=== PATIENT | male | born 1965 | race Caucasian/White ===

== ENCOUNTER 2021-12-28 19:14 | Inpatient (IN) ==
--- NOTE | 2021-12-28 19:52 | Emergency Department Note ---
Syncope HPI General Chief Complaint: Syncope Stated Complaint: Syncopal episode, Head lac Time Seen by Provider: 12/28/21 19:52 Source: patient and EMS Mode of arrival: EMS Limitations: physical limitation History of Present Illness HPI Narrative: Narrative: 56-year-old male presents to the emergency department because of a syncopal episode. Patient says to me that he "do not feel right" today. He denies any pain. Denies shortness of breath. States that he had a syncopal episode. Unclear how long he was out for. Patient does not recall but told the nurse he was out for a day. Patient told EMS that he does not get any care from providers but his record indicates that he sees clinicians and receives me dications. Patient appears to be a poor historian. Patient states that the swelling and redness in his legs usually goes away in a couple of days. Patient states he has no idea if he hit his head. Patient does have some wound and bleeding on the right forehead area. Social history denies tobacco, denies alcohol. Past medical history has hypertension for which he uses lisinopril. Related Data Home Medications Medication Instructions Recorded Confirmed gabapentin 100 mg tablet 300 mg PO TID 11/11/20 12/29/21 Previous Rx's Medication Instructions Recorded lisinopril 20 mg tablet 20 mg PO BID HTN #60 tabs 03/27/19 Allergies Allergy/AdvReac Type Severity Reaction Status Date / Time No Known Drug Allergies Allergy Verified 12/29/21 05:23 Review of Systems ROS ROS Narrative: Narrative: I question the accuracy of this review of systems. Constitutional: Denies fever Eyes: Denies eye pain or eye discharge ENT ED: Denies throat pain or rhinorrhea Cardiovascular: Denies chest pain Gastrointestinal: Denies abdominal pain Genitourinary: Denies dysuria Musculoskeletal: Denies back pain Integumentary: Reports other (Red skin on his legs.) Neurological: Denies headache Psychiatric: Denies anxiety or depression PENDING SALE TO [facility] Narrative Patient History Narrative: Narrative: Medical/Surgical/Family History All Active Problems (Updated 12/29/21 @ 11:32 by Dale Brown MD) Syncope and collapse (Acute) Umbilical hernia (Chronic) Lumbar radiculopathy (Chronic) Chronic pain (Chronic) Other obesity due to excess calories (Chronic) Trichotillomania (Chronic) Rhinitis (Chronic) Effusion of knee joint right (Chronic) Chondromalacia of knee (Chronic) Bilateral primary osteoarthritis of knee (Chronic) Lump (Chronic) Venous insufficiency (Chronic) DJD (degenerative joint disease) of knee (Chronic) Peripheral neuropathy (Chronic) Hypertension (Chronic) Lesion of lip (Chronic) Other low back pain (Chronic) Dislocation of knee (Chronic) Medical History Bilateral primary osteoarthritis of knee Chondromalacia of knee Right Chronic pain Dislocation of knee DJD (degenerative joint disease) of knee Right Effusion of knee joint right Hypertension Lesion of lip Upper Lumbar radiculopathy Lump right knee Other low back pain Other obesity due to excess calories Peripheral neuropathy Rhinitis Trichotillomania Umbilical hernia Venous insufficiency Surgical History History of knee surgery RTK-1982 Right knee total-12/2020 Left knee revision-2001 History of lumbar laminectomy Family History Mother Cancer Father Cancer Prostate cancer Lung disease Heart disease Sister Lung cancer Social History Smoking Status: Never smoker Alcohol Intake Frequency: 0-2 drinks per day Substance Use: does not use Exam Narrative Narrative: Narrative: General Limitations: physical limitation General appearance: Present alert, in no apparent distress and obese Head Head: Present normocephalic and other (Superficial abrasions on the right side of his forehead with some soft tissue swelling.); Absent atraumatic Eye Eye: Present normal appearance; Absent scleral icterus Neck Neck: Present normal inspection and trachea midline Respiratory Respiratory: Present normal lung sounds bilaterally; Absent respiratory distress Cardiovascular Cardiovascular: Present normal rhythm and tachycardia Adbominal Abdominal: Present soft and other (Morbidly obese); Absent tenderness Extremities Extremities: Present other (Massive swelling of both lower extremities with bright red erythema on the lower half of each leg. Minimally tender to palpation.) Back Back: Absent tenderness Neurological Neurological: Present alert and oriented X3 Psychiatric Psychiatric: Present normal mood and flat affect Skin Skin: Present warm (WNL) and dry Course Vital Signs Vital signs: Vital Signs Temperature 97.3 F 12/28/21 19:17 Pulse Rate 101 H 12/28/21 19:17 Respiratory Rate 18 12/28/21 19:17 Blood Pressure 158/120 12/28/21 19:17 Pulse Oximetry (%) 97 12/28/21 19:17 Oxygen Delivery Method 12/28/21 19:17 Temperature 98.8 F 12/29/21 08:04 Pulse Rate 113 H 12/29/21 01:56 Respiratory Rate 16 12/29/21 09:12 Blood Pressure 158/131 12/29/21 08:04 Pulse Oximetry (%) 98 12/29/21 09:12 Oxygen Delivery Method 12/29/21 09:[address] [facility] MDM Narrative Medical decision making narrative: Narrative: Middle-age male appearing older than her stated age presents after syncopal episode and not feeling right. Differential diagnosis includes urinary tract infection, pyelonephritis, sepsis, pneumonia, cardiac arrhythmia, other CT of the head showed no evidence of acute acute bleed or mass-effect. Mild soft tissue swelling along the left frontal region. White count normal at 7.2. Hemoglobin mildly low at 11.1. Sodium low at 128. Note that it was low 10 months ago at 127. Potassium normal at 4.1. Chloride was low at 91. Bicarb low at 20. Bilirubin elevated at 1.2 with elevated AST of 47 and normal ALT of 29. Patient remained tachycardic in the emergency department. I did not find a clear explanation for his syncope. His EKG showed a sinus tachycardia without ischemia. Case was discussed with our hospitalist who agreed on admitting the patient for further evaluation and care. Sepsis Sepsis Identified: No Lab Data Result diagrams: 12/28/21 20:50 12/29/21 09:05 Labs: Lab Results 12/28/21 12/28/21 12/28/21 Range/Units 20:50 20:50 20:50 WBC 7.2 (4.5-11.0) K/mcL RBC 3.31 L (4.63-6.08) M/mcL Hgb 11.1 L (13.7-17.5) g/dL Hct 32.2 L (40.1-51.0) % MCV 97.3 (80.0-100.0) fL MCH 33.5 (26.0-34.0) pg MCHC 34.5 (31.0-36.0) g/dL RDW 14.6 H (11.5-14.5) % Plt Count 202 (140-440) K/mcL MPV 8.8 (8.8-12.5) fL Immature Gran % (Auto) 0.4 (0.0-0.5) % Neut % (Auto) 63.0 (38.0-78.0) % Lymph % (Auto) 27.2 (15.5-49.0) % [place] % (Auto) 7.6 (1.0-12.0) % Eos % (Auto) 1.1 (0.0-7.0) % Baso % (Auto) 0.7 (0.0-2.0) % Lymph # (Auto) 1.96 (1.50-4.80) K/mcL [place] # (Auto) 0.55 (0.10-0.90) K/mcL Eos # (Auto) 0.08 (0.00-0.70) K/mcL Baso # (Auto) 0.05 (0.00-0.30) K/mcL Seg Neutrophils % (38-78) % Lymphocytes % (15-49) % Monocytes % (Manual) (1-12) % Eosinophils % (Manual) (0-7) % Immature Gran # 0.03 (0.00-0.05) K/mcl Absolute Neutrophils 4.53 (1.80-8.00) K/mcL Platelet Estimate (Normal) RBC Morphology (Normal) Macrocytosis (None Seen) ABG Methemoglobin (0.4-1.5) % VBG pH (7.32-7.42) U VBG pCO2 (41.0-51.0) mmHg VBG pO2 (25.0-40.0) mmHg VBG HCO3 (24.0-28.0) mmol/L VBG Total CO2 (25.0-29.0) mmol/L VBG O2 Saturation (40.0-70.0) % VBG Base Excess (-2-3) VBG Lactic Acid 5.4 H* (0.5-2.0) mmol/L Carboxyhemoglobin (0.0-1.5) % THgb Total Hemoglobin (13.5-16.5) gm/Dl Sodium 128 L (133-145) mmol/L Potassium 4.1 (3.3-5.1) mmol/L Chloride 91 L (96-108) mmol/L Carbon Dioxide 20 L (22-30) mmol/L Anion Gap 17.0 H (8.0-16.0) BUN 7 (6-20) mg/dL Creatinine 0.7 (0.7-1.2) mg/dL GFR Calculation 107 Glucose 82 (70-105) mg/dL Calcium 8.4 L (8.6-10.4) mg/dL Total Bilirubin 1.2 H (0.1-1.0) mg/dL AST 47 H (<40) U/L ALT 29 (<40) U/L Alkaline Phosphatase 84 (39-117) U/L Total Creatine Kinase (24-195) U/L C-Reactive Protein (0.03-0.80) mg/dL Total Protein 7.4 (5.9-8.4) gm/dL Albumin 3.7 (3.2-5.2) gm/dL Globulin 3.7 (2.2-3.7) gm/dL Albumin/Globulin Ratio 1.0 (1.0-2.3) Procalcitonin (<0.10) ng/mL Urine Color Urine Appearance (Clear) Urine pH (5.0-9.0) Ur Specific [place] (1.000-1.035) Urine Protein (Negative) mg/dL Urine Glucose (UA) (Negative) mg/dL Urine Ketones (Negative) mg/dL Urine Occult Blood (Negative) mg/dL Urine Nitrate (Negative) Urine Bilirubin (Negative) mg/dL Urine Urobilinogen mg/dL Ur Leukocyte Esterase (Negative) /uL Urine RBC (0-3) /hpf Urine WBC (0-4) /hpf Ur Squamous Epith Cells (0-4) /hpf Urine Bacteria (0) /hpf Hyaline Casts (0-2) /lph Urine Mucus (None) /hpf Ur Culture Indicated? 12/28/21 12/28/21 12/28/21 Range/Units 21:39 22:32 22:32 WBC (4.5-11.0) K/mcL RBC (4.63-6.08) M/mcL Hgb (13.7-17.5) g/dL Hct (40.1-51.0) % MCV (80.0-100.0) fL MCH (26.0-34.0) pg MCHC (31.0-36.0) g/dL RDW (11.5-14.5) % Plt Count (140-440) K/mcL MPV (8.8-12.5) fL Immature Gran % (Auto) (0.0-0.5) % Neut % (Auto) (38.0-78.0) % Lymph % (Auto) (15.5-49.0) % [place] % (Auto) (1.0-12.0) % Eos % (Auto) (0.0-7.0) % Baso % (Auto) (0.0-2.0) % Lymph # (Auto) (1.50-4.80) K/mcL [place] # (Auto) (0.10-0.90) K/mcL Eos # (Auto) (0.00-0.70) K/mcL Baso # (Auto) (0.00-0.30) K/mcL Seg Neutrophils % (38-78) % Lymphocytes % (15-49) % Monocytes % (Manual) (1-12) % Eosinophils % (Manual) (0-7) % Immature Gran # (0.00-0.05) K/mcl Absolute Neutrophils (1.80-8.00) K/mcL Platelet Estimate (Normal) RBC Morphology (Normal) Macrocytosis (None Seen) ABG Methemoglobin (0.4-1.5) % VBG pH (7.32-7.42) U VBG pCO2 (41.0-51.0) mmHg VBG pO2 (25.0-40.0) mmHg VBG HCO3 (24.0-28.0) mmol/L VBG Total CO2 (25.0-29.0) mmol/L VBG O2 Saturation (40.0-70.0) % VBG Base Excess (-2-3) VBG Lactic Acid (0.5-2.0) mmol/L Carboxyhemoglobin (0.0-1.5) % THgb Total Hemoglobin (13.5-16.5) gm/Dl Sodium (133-145) mmol/L Potassium (3.3-5.1) mmol/L Chloride (96-108) mmol/L Carbon Dioxide (22-30) mmol/L Anion Gap (8.0-16.0) BUN (6-20) mg/dL Creatinine (0.7-1.2) mg/dL GFR Calculation Glucose (70-105) mg/dL Calcium (8.6-10.4) mg/dL Total Bilirubin (0.1-1.0) mg/dL AST (<40) U/L ALT (<40) U/L Alkaline Phosphatase (39-117) U/L Total Creatine Kinase (24-195) U/L C-Reactive Protein 0.50 (0.03-0.80) mg/dL Total Protein (5.9-8.4) gm/dL Albumin (3.2-5.2) gm/dL Globulin (2.2-3.7) gm/dL Albumin/Globulin Ratio (1.0-2.3) Procalcitonin 0.07 (<0.10) ng/mL Urine Color Yellow Urine Appearance Clear (Clear) Urine pH 5.0 (5.0-9.0) Ur Specific [place] 1.010 (1.000-1.035) Urine Protein Negative (Negative) mg/dL Urine Glucose (UA) Negative (Negative) mg/dL Urine Ketones Negative (Negative) mg/dL Urine Occult Blood Negative (Negative) mg/dL Urine Nitrate Negative (Negative) Urine Bilirubin Negative (Negative) mg/dL Urine Urobilinogen Negative mg/dL Ur Leukocyte Esterase Negative (Negative) /uL Urine RBC 0 (0-3) /hpf Urine WBC 1 (0-4) /hpf Ur Squamous Epith Cells 0 (0-4) /hpf Urine Bacteria None (0) /hpf Hyaline Casts 28 H (0-2) /lph Urine Mucus Few A (None) /hpf Ur Culture Indicated? No 12/28/21 12/28/21 12/28/21 Range/Units 22:33 22:51 23:25 WBC (4.5-11.0) K/mcL RBC (4.63-6.08) M/mcL Hgb (13.7-17.5) g/dL Hct (40.1-51.0) % MCV (80.0-100.0) fL MCH (26.0-34.0) pg MCHC (31.0-36.0) g/dL RDW (11.5-14.5) % Plt Count (140-440) K/mcL MPV (8.8-12.5) fL Immature Gran % (Auto) (0.0-0.5) % Neut % (Auto) (38.0-78.0) % Lymph % (Auto) (15.5-49.0) % [place] % (Auto) (1.0-12.0) % Eos % (Auto) (0.0-7.0) % Baso % (Auto) (0.0-2.0) % Lymph # (Auto) (1.50-4.80) K/mcL [place] # (Auto) (0.10-0.90) K/mcL Eos # (Auto) (0.00-0.70) K/mcL Baso # (Auto) (0.00-0.30) K/mcL Seg Neutrophils % 64 (38-78) % Lymphocytes % 30 (15-49) % Monocytes % (Manual) 4 (1-12) % Eosinophils % (Manual) 2 (0-7) % Immature Gran # (0.00-0.05) K/mcl Absolute Neutrophils (1.80-8.00) K/mcL Platelet Estimate Normal (Normal) RBC Morphology Abnormal A (Normal) Macrocytosis 1+ A (None Seen) ABG Methemoglobin (0.4-1.5) % VBG pH (7.32-7.42) U VBG pCO2 (41.0-51.0) mmHg VBG pO2 (25.0-40.0) mmHg VBG HCO3 (24.0-28.0) mmol/L VBG Total CO2 (25.0-29.0) mmol/L VBG O2 Saturation (40.0-70.0) % VBG Base Excess (-2-3) VBG Lactic Acid 5.7 H* (0.5-2.0) mmol/L Carboxyhemoglobin (0.0-1.5) % THgb Total Hemoglobin (13.5-16.5) gm/Dl Sodium (133-145) mmol/L Potassium (3.3-5.1) mmol/L Chloride (96-108) mmol/L Carbon Dioxide (22-30) mmol/L Anion Gap (8.0-16.0) BUN (6-20) mg/dL Creatinine (0.7-1.2) mg/dL GFR Calculation Glucose (70-105) mg/dL Calcium (8.6-10.4) mg/dL Total Bilirubin (0.1-1.0) mg/dL AST (<40) U/L ALT (<40) U/L Alkaline Phosphatase (39-117) U/L Total Creatine Kinase 435 H (24-195) U/L C-Reactive Protein (0.03-0.80) mg/dL Total Protein (5.9-8.4) gm/dL Albumin (3.2-5.2) gm/dL Globulin (2.2-3.7) gm/dL Albumin/Globulin Ratio (1.0-2.3) Procalcitonin (<0.10) ng/mL Urine Color Urine Appearance (Clear) Urine pH (5.0-9.0) Ur Specific [place] (1.000-1.035) Urine Protein (Negative) mg/dL Urine Glucose (UA) (Negative) mg/dL Urine Ketones (Negative) mg/dL Urine Occult Blood (Negative) mg/dL Urine Nitrate (Negative) Urine Bilirubin (Negative) mg/dL Urine Urobilinogen mg/dL Ur Leukocyte Esterase (Negative) /uL Urine RBC (0-3) /hpf Urine WBC (0-4) /hpf Ur Squamous Epith Cells (0-4) /hpf Urine Bacteria (0) /hpf Hyaline Casts (0-2) /lph Urine Mucus (None) /hpf Ur Culture Indicated? 12/28/21 Range/Units 23:25 WBC (4.5-11.0) K/mcL RBC (4.63-6.08) M/mcL Hgb (13.7-17.5) g/dL Hct (40.1-51.0) % MCV (80.0-100.0) fL MCH (26.0-34.0) pg MCHC (31.0-36.0) g/dL RDW (11.5-14.5) % Plt Count (140-440) K/mcL MPV (8.8-12.5) fL Immature Gran % (Auto) (0.0-0.5) % Neut % (Auto) (38.0-78.0) % Lymph % (Auto) (15.5-49.0) % [place] % (Auto) (1.0-12.0) % Eos % (Auto) (0.0-7.0) % Baso % (Auto) (0.0-2.0) % Lymph # (Auto) (1.50-4.80) K/mcL [place] # (Auto) (0.10-0.90) K/mcL Eos # (Auto) (0.00-0.70) K/mcL Baso # (Auto) (0.00-0.30) K/mcL Seg Neutrophils % (38-78) % Lymphocytes % (15-49) % Monocytes % (Manual) (1-12) % Eosinophils % (Manual) (0-7) % Immature Gran # (0.00-0.05) K/mcl Absolute Neutrophils (1.80-8.00) K/mcL Platelet Estimate (Normal) RBC Morphology (Normal) Macrocytosis (None Seen) ABG Methemoglobin 0.3 L (0.4-1.5) % VBG pH 7.41 (7.32-7.42) U VBG pCO2 33.5 L (41.0-51.0) mmHg VBG pO2 66.2 H (25.0-40.0) mmHg VBG HCO3 20.5 L (24.0-28.0) mmol/L VBG Total CO2 21.5 L (25.0-29.0) mmol/L VBG O2 Saturation 87.3 H (40.0-70.0) % VBG Base Excess -3 L (-2-3) VBG Lactic Acid (0.5-2.0) mmol/L Carboxyhemoglobin 3.1 H (0.0-1.5) % THgb Total Hemoglobin 13.0 L (13.5-16.5) gm/Dl Sodium (133-145) mmol/L Potassium (3.3-5.1) mmol/L Chloride (96-108) mmol/L Carbon Dioxide (22-30) mmol/L Anion Gap (8.0-16.0) BUN (6-20) mg/dL Creatinine (0.7-1.2) mg/dL GFR Calculation Glucose (70-105) mg/dL Calcium (8.6-10.4) mg/dL Total Bilirubin (0.1-1.0) mg/dL AST (<40) U/L ALT (<40) U/L Alkaline Phosphatase (39-117) U/L Total Creatine Kinase (24-195) U/L C-Reactive Protein (0.03-0.80) mg/dL Total Protein (5.9-8.4) gm/dL Albumin (3.2-5.2) gm/dL Globulin (2.2-3.7) gm/dL Albumin/Globulin Ratio (1.0-2.3) Procalcitonin (<0.10) ng/mL Urine Color Urine Appearance (Clear) Urine pH (5.0-9.0) Ur Specific [place] (1.000-1.035) Urine Protein (Negative) mg/dL Urine Glucose (UA) (Negative) mg/dL Urine Ketones (Negative) mg/dL Urine Occult Blood (Negative) mg/dL Urine Nitrate (Negative) Urine Bilirubin (Negative) mg/dL Urine Urobilinogen mg/dL Ur Leukocyte Esterase (Negative) /uL Urine RBC (0-3) /hpf Urine WBC (0-4) /hpf Ur Squamous Epith Cells (0-4) /hpf Urine Bacteria (0) /hpf Hyaline Casts (0-2) /lph Urine Mucus (None) /hpf Ur Culture Indicated? ED POC Tests ED POC Tests: CASSIE - SARS Antigen Negative EKG Data EKG #1: EKG attestation: Yes I reviewed and interpreted this EKG. EKG shows normal: sinus rhythm Rate: tachycardia [place]/QRS: normal ST segment elevation in: None ST segment depression in: None T wave inversions noted in: None Hyperacute T waves: None Interpretation: other (Abnormal EKG. Sinus tachycardia.) Discharge Plan Patient/Caregiver Discharge Instructions Pt seen by FIELD AUDITOR/PA only: No Clinical Impression: Syncope and collapse Patient Disposition: Xfer As Inpt ([facility]) Condition: Serious Discharge Date/Time: 12/29/21 01:42
[2021-12-28 21:56] LABS: Basophils # (Auto) 0.05 K/mcL (0.00-0.30); Basophils % (Auto) 0.7 % (0.0-2.0); Eosinophils # (Auto) 0.08 K/mcL (0.00-0.70); Eosinophils % (Auto) 1.1 % (0.0-7.0); Hematocrit 32.2 % (40.1-51.0); Hemoglobin 11.1 g/dL (13.7-17.5); Lymphocytes # (Auto) 1.96 K/mcL (1.50-4.80); Lymphocytes % (Auto) 27.2 % (15.5-49.0); Mean Cell Volume 97.3 fL (80.0-100.0); Mean Corpuscular HGB Conc 34.5 g/dL (31.0-36.0); Mean Platelet Volume 8.8 fL (8.8-12.5); Monocytes # (Auto) 0.55 K/mcL (0.10-0.90); Monocytes % (Auto) 7.6 % (1.0-12.0); Platelet Count 202 K/mcL (140-440); RBC 3.31 M/mcL (4.63-6.08); Red Cell Distribution Width 14.6 % (11.5-14.5); WBC 7.2 K/mcL (4.5-11.0)
[2021-12-28 22:13] LABS: ALT/SGPT 29 U/L (<40); AST/SGOT 47 U/L (<40); Albumin 3.7 gm/dL (3.2-5.2); Alkaline Phosphatase 84 U/L (39-117); Bilirubin,Total 1.2 mg/dL (0.1-1.0); Blood Urea Nitrogen 7 mg/dL (6-20); Calcium 8.4 mg/dL (8.6-10.4); Carbon Dioxide 20 mmol/L (22-30); Chloride 91 mmol/L (96-108); Globulin 3.7 gm/dL (2.2-3.7); Glomerular Filtration Rate 107; Glucose 82 mg/dL (70-105)
[2021-12-28] MEDS ORDERED: cefTRIAXone 1 GM VIAL IV ONE (22:23)
[2021-12-28 22:47] LABS: Appearance,Urine CLEAR (Clear); Bilirubin,Urine Negative (Negative); Color,Urine YELLOW; Culture Indicated,Urine No; Glucose,Urine (UA) Negative (Negative); Ketones,Urine Negative (Negative); Leukocyte Esterase,Urine Negative /uL (Negative); Mucus,Urine FEW /hpf; Nitrate,Urine Negative (Negative); Protein,Urine Negative (Negative); Urine Blood Negative (Negative); Urine Hyaline Cast 28 /lph (0-2); Urine RBC 0 /hpf (0-3); Urine Squamous Epithelial Cell 0 /hpf (0-4); Urine WBC 1 /hpf (0-4); Urobilinogen,Urine Negative
[2021-12-28 23:42] LABS: ABG Methemoglobin 0.3 % (0.4-1.5); VBG Base Excess -3 (-2-3); VBG HCO3 20.5 mmol/L (24.0-28.0); VBG Oxygen Saturation 87.3 % (40.0-70.0); VBG PCO2 33.5 mmHg (41.0-51.0); VBG PH 7.41 U (7.32-7.42); VBG PO2 66.2 mmHg (25.0-40.0); VBG Total CO2 21.5 mmol/L (25.0-29.0)
[2021-12-28 23:51] LABS: Eosinophils % (Manual) 2 % (0-7); Lymphocytes % 30 % (15-49); Macrocytosis 1+ (None Seen); Monocytes % (Manual) 4 % (1-12); Platelet Estimate NORMAL (Normal); RBC Morphology ABNORMAL (Normal); Segmented Neutrophils % 64 % (38-78)
[2021-12-29 00:04] LABS: Creatine Kinase 435 U/L (24-195)
[2021-12-29] MEDS ORDERED: 0.9 % SODIUM CHLORIDE 1,000 ML IV ONE (00:19)
[2021-12-29] MEDS ORDERED: cefTRIAXone 1 GM VIAL IV ONE (00:20)
--- NOTE | 2021-12-29 01:57 | Cat Scan Report ---
CLINICAL INFORMATION: Trauma-fall COMPARISON: None. TECHNIQUE: 2.5 mm helical slices were obtained in the skull base to vertex. Following reconstruction, axial reformatted images were reviewed at bone and parenchymal windows. The exam was performed using radiation dose optimization techniques including, but not limited to, automated exposure control, adjustment of the mA and/or kV according to patient size and use of iterative reconstruction technique. FINDINGS: The ventricles, sulci, fissures, and cisterns are symmetrically enlarged compatible with atrophy. No extra-axial fluid collections are identified. Mild patchy chronic ischemic changes, in the deep cerebral white matter, are expected for age. There is no hemorrhage, mass effect, or edema. Bone windows show no osseous abnormality. IMPRESSION: Mild atrophy and chronic ischemic changes in the deep cerebral white more than expected for age. No intracerebral hemorrhage or other acute findings Interpreted and Authenticated by: Gustavo Beltran 12/29/21
[2021-12-29] MEDS: 0.9 % SODIUM CHLORIDE 1,000 ML IV SCH ×4 (03:49→23:18)
[2021-12-29] MEDS ORDERED: LABETALOL 5 MG/ML ML IV ONE (07:44)
[2021-12-29] MEDS ORDERED: POTASSIUM CHLORIDE 20 MEQ TABLET PO PRN ×2 (09:03)
[2021-12-29] MEDS ORDERED: POTASSIUM CHLORIDE 40 MEQ in DEXTROSE 5% IN WATER 500 ML IV PRN (09:03)
[2021-12-29] MEDS ORDERED: SENNOSIDES 1 TABLET PO PRN (09:03)
[2021-12-29] MEDS ORDERED: ONDANSETRON 4 MG/2 ML VIAL IV PRN (09:03)
[2021-12-29] MEDS ORDERED: IPRATROPIUM/ALBUTEROL 3 ML AMPUL.NEB NEB PRN (09:03)
[2021-12-29] MEDS ORDERED: ACETAMINOPHEN 325 MG TABLET PO PRN (09:03)
[2021-12-29] MEDS ORDERED: POLYETHYLENE GLYCOL 3350 17 GM PACKET PO PRN (09:03)
[2021-12-29] MEDS ORDERED: MAGNESIUM SULFATE 2 GM/50 ML BAG IV PRN (09:03)
--- NOTE | 2021-12-29 09:03 | Internal Med History&Physical ---
HPI History of Present Illness Patient information: Note initiated : 12/29/21 at 8:52 am Service Date, if different from initiated Date: [] Patient: Justo Nava a 56 y/o M admitted on 12/29/21 for Syncopal episode, Head lac. Chief Complaint: [] History of present illness: Mr. Nava is a 56 year old M Who lives alone presents the ED for syncope. Patient did call 911 and had a small laceration above his left eyebrow. Blood glucose was 84. Patient did not feel right. He said he was down from yesterday. In the ED he was evaluated and found to have elevated blood pressure and heart rate. Afebrile. Oxygenation. White blood cell count and manual differential are okay. Procalcitonin okay as well as CRP. He had a hyponatremia of 128. Creatinine was okay. Is found to have an elevated CK. And his lactate was found to be elevated 5.7. pH within normal limits. Patient started on IV fluid. EKG was sinus tach. Patient states he woke up feeling normal. He went into his bedroom in the afternoon around 2 and and then fell down. He does not know if he passed out and then fell or passed out after he fell. He says he was there for few hours and then called 911. Says he did pass out couple weeks ago but did not remember the circumstances. No nausea vomiting prior but did have some here in the hospital. No history of heart or lung disease. He has edema in his legs but says that is normal. Does not use a cane or walker. No fevers or chills. No chest or abdominal pain. No diarrhea. Review of Systems: Pertinent positives as above. Denies headache/fever/chills/nausea/vomiting/chest or abdominal pain/cough/dyspnea/diarrhea. Remaining 10 point review of system reviewed negative PFSH PFSH All Active Problems (Updated 12/29/21 @ 11:32 by Dale Brown MD) Syncope and collapse (Acute) Umbilical hernia (Chronic) Lumbar radiculopathy (Chronic) Chronic pain (Chronic) Other obesity due to excess calories (Chronic) Trichotillomania (Chronic) Rhinitis (Chronic) Effusion of knee joint right (Chronic) Chondromalacia of knee (Chronic) Bilateral primary osteoarthritis of knee (Chronic) Lump (Chronic) Venous insufficiency (Chronic) DJD (degenerative joint disease) of knee (Chronic) Peripheral neuropathy (Chronic) Hypertension (Chronic) Lesion of lip (Chronic) Other low back pain (Chronic) Dislocation of knee (Chronic) Medical History Bilateral primary osteoarthritis of knee Chondromalacia of knee Right Chronic pain Dislocation of knee DJD (degenerative joint disease) of knee Right Effusion of knee joint right Hypertension Lesion of lip Upper Lumbar radiculopathy Lump right knee Other low back pain Other obesity due to excess calories Peripheral neuropathy Rhinitis Trichotillomania Umbilical hernia Venous insufficiency Surgical History History of knee surgery RTK-1982 Right knee total-12/2020 Left knee revision-2001 History of lumbar laminectomy Family History Mother Cancer Father Cancer Prostate cancer Lung disease Heart disease Sister Lung cancer Social History (Updated 08/11/21 @ 12:09 by Viry Bernard) marital status: education level: college 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 physical activity: none smoking status: Never smoker alcohol intake frequency: 0-2 drinks per day substance use type: does not use MEDS/ALLERGIES Home Medications and Allergies Home Medications Medication Instructions Recorded Confirmed Type lisinopril 20 mg tablet 20 mg PO BID HTN #60 tabs 03/27/19 12/29/21 Rx gabapentin 100 mg tablet 300 mg PO TID 11/11/20 12/29/21 History Allergies Allergy/AdvReac Type Severity Reaction Status Date / Time No Known Drug Allergies Allergy Verified 12/29/21 05:23 EXAM Constitutional Vitals: Temp Pulse Resp BP Pulse Ox O2 Del Method 98.8 F 113 H 19 158/131 98 12/29/21 08:04 12/29/21 01:56 12/29/21 08:04 12/29/21 08:04 12/29/21 08:04 12/29/21 08:04 Exam: General: Alert, Awake, No acute Distress, obese Eyes/N/T: EOMI, PERRL, Head/Neck: neck supple, normocephalic atraumatic CV: RRR, No murmurs, normal s1/s2 Pulm: Clear b/l, no wheezing/rhonchi/rales Abd: soft, nontender, +BS x4 Ext: no clubbing/cyanosis, b/l LE 2+ edema Neuro: Alert, no focal deficits, moves all extremities, CN 2-12 grossly intact, symmetrical strength b/l upper/lower, sensations intact b/l upper/lower Skin: warm/dry DATA Data Completed and Pending Labs: Labs from last 24 hours 12/28/21 12/28/21 12/28/21 23:25 23:25 22:51 WBC RBC Hgb Hct MCV MCH MCHC RDW Plt Count MPV Immature Gran % (Auto) Neut % (Auto) Lymph % (Auto) [place] % (Auto) Eos % (Auto) Baso % (Auto) Lymph # (Auto) [place] # (Auto) Eos # (Auto) Baso # (Auto) Seg Neutrophils % Lymphocytes % Monocytes % (Manual) Eosinophils % (Manual) Immature Gran # Absolute Neutrophils Platelet Estimate RBC Morphology Macrocytosis ABG Methemoglobin 0.3 L VBG pH 7.41 VBG pCO2 33.5 L VBG pO2 66.2 H VBG HCO3 20.5 L VBG Total CO2 21.5 L VBG O2 Saturation 87.3 H VBG Base Excess -3 L VBG Lactic Acid 5.7 H* Carboxyhemoglobin 3.1 H Total Hemoglobin 13.0 L Sodium Potassium Chloride Carbon Dioxide Anion Gap BUN Creatinine GFR Calculation Glucose Calcium Total Bilirubin AST ALT Alkaline Phosphatase Total Creatine Kinase 435 H C-Reactive Protein Total Protein Albumin Globulin Albumin/Globulin Ratio Procalcitonin Urine Color Urine Appearance Urine pH Ur Specific [place] Urine Protein Urine Glucose (UA) Urine Ketones Urine Occult Blood Urine Nitrate Urine Bilirubin Urine Urobilinogen Ur Leukocyte Esterase Urine RBC Urine WBC Ur Squamous Epith Cells Urine Bacteria Hyaline Casts Urine Mucus Ur Culture Indicated? 12/28/21 12/28/21 12/28/21 22:33 22:32 22:32 WBC RBC Hgb Hct MCV MCH MCHC RDW Plt Count MPV Immature Gran % (Auto) Neut % (Auto) Lymph % (Auto) [place] % (Auto) Eos % (Auto) Baso % (Auto) Lymph # (Auto) [place] # (Auto) Eos # (Auto) Baso # (Auto) Seg Neutrophils % 64 Lymphocytes % 30 Monocytes % (Manual) 4 Eosinophils % (Manual) 2 Immature Gran # Absolute Neutrophils Platelet Estimate Normal RBC Morphology Abnormal A Macrocytosis 1+ A ABG Methemoglobin VBG pH VBG pCO2 VBG pO2 VBG HCO3 VBG Total CO2 VBG O2 Saturation VBG Base Excess VBG Lactic Acid Carboxyhemoglobin Total Hemoglobin Sodium Potassium Chloride Carbon Dioxide Anion Gap BUN Creatinine GFR Calculation Glucose Calcium Total Bilirubin AST ALT Alkaline Phosphatase Total Creatine Kinase C-Reactive Protein 0.50 Total Protein Albumin Globulin Albumin/Globulin Ratio Procalcitonin 0.07 Urine Color Urine Appearance Urine pH Ur Specific [place] Urine Protein Urine Glucose (UA) Urine Ketones Urine Occult Blood Urine Nitrate Urine Bilirubin Urine Urobilinogen Ur Leukocyte Esterase Urine RBC Urine WBC Ur Squamous Epith Cells Urine Bacteria Hyaline Casts Urine Mucus Ur Culture Indicated? 12/28/21 12/28/21 12/28/21 21:39 20:50 20:50 WBC RBC Hgb Hct MCV MCH MCHC RDW Plt Count MPV Immature Gran % (Auto) Neut % (Auto) Lymph % (Auto) [place] % (Auto) Eos % (Auto) Baso % (Auto) Lymph # (Auto) [place] # (Auto) Eos # (Auto) Baso # (Auto) Seg Neutrophils % Lymphocytes % Monocytes % (Manual) Eosinophils % (Manual) Immature Gran # Absolute Neutrophils Platelet Estimate RBC Morphology Macrocytosis ABG Methemoglobin VBG pH VBG pCO2 VBG pO2 VBG HCO3 VBG Total CO2 VBG O2 Saturation VBG Base Excess VBG Lactic Acid 5.4 H* Carboxyhemoglobin Total Hemoglobin Sodium 128 L Potassium 4.1 Chloride 91 L Carbon Dioxide 20 L Anion Gap 17.0 H BUN 7 Creatinine 0.7 GFR Calculation 107 Glucose 82 Calcium 8.4 L Total Bilirubin 1.2 H AST 47 H ALT 29 Alkaline Phosphatase 84 Total Creatine Kinase C-Reactive Protein Total Protein 7.4 Albumin 3.7 Globulin 3.7 Albumin/Globulin Ratio 1.0 Procalcitonin Urine Color Yellow Urine Appearance Clear Urine pH 5.0 Ur Specific [place] 1.010 Urine Protein Negative Urine Glucose (UA) Negative Urine Ketones Negative Urine Occult Blood Negative Urine Nitrate Negative Urine Bilirubin Negative Urine Urobilinogen Negative Ur Leukocyte Esterase Negative Urine RBC 0 Urine WBC 1 Ur Squamous Epith Cells 0 Urine Bacteria None Hyaline Casts 28 H Urine Mucus Few A Ur Culture Indicated? No 12/28/21 20:50 WBC 7.2 RBC 3.31 L Hgb 11.1 L Hct 32.2 L MCV 97.3 MCH 33.5 MCHC 34.5 RDW 14.6 H Plt Count 202 MPV 8.8 Immature Gran % (Auto) 0.4 Neut % (Auto) 63.0 Lymph % (Auto) 27.2 [place] % (Auto) 7.6 Eos % (Auto) 1.1 Baso % (Auto) 0.7 Lymph # (Auto) 1.96 [place] # (Auto) 0.55 Eos # (Auto) 0.08 Baso # (Auto) 0.05 Seg Neutrophils % Lymphocytes % Monocytes % (Manual) Eosinophils % (Manual) Immature Gran # 0.03 Absolute Neutrophils 4.53 Platelet Estimate RBC Morphology Macrocytosis ABG Methemoglobin VBG pH VBG pCO2 VBG pO2 VBG HCO3 VBG Total CO2 VBG O2 Saturation VBG Base Excess VBG Lactic Acid Carboxyhemoglobin Total Hemoglobin Sodium Potassium Chloride Carbon Dioxide Anion Gap BUN Creatinine GFR Calculation Glucose Calcium Total Bilirubin AST ALT Alkaline Phosphatase Total Creatine Kinase C-Reactive Protein Total Protein Albumin Globulin Albumin/Globulin Ratio Procalcitonin Urine Color Urine Appearance Urine pH Ur Specific [place] Urine Protein Urine Glucose (UA) Urine Ketones Urine Occult Blood Urine Nitrate Urine Bilirubin Urine Urobilinogen Ur Leukocyte Esterase Urine RBC Urine WBC Ur Squamous Epith Cells Urine Bacteria Hyaline Casts Urine Mucus Ur Culture Indicated? A/P Narrative A/P Narrative: A: *Syncope: Unknown etiology -ekg sinsus *Rhabdomyolysis, mild: 2/2 downtime after fall *lactic acidosis: unknown etiology, likely component of above *Metabolic acidosis: 2/2 above *Hypomagnesemia: *Hyponatremia: Unknown chronicity *Peripheral neuropathy and chronic LBP: *Peripheral edema: *HTN: On lisinopril *Morbid obesity: BMI 41 *Venous insufficiency: P: -CT chest abdomen pelvis looking for possible source of infection given elevated lactate -IVF -f/u Na -f/u CPK -f/u lactate -check bnp and echo for edema -check tsh -cont home ACEI -elevate legs and compression wraps -PT/OT -ppx: Lovenox Time Spent With Patient Time: Total time spent is greater than 50% in coordination of care (as documented) at patient's floor/unit and/or counseling patient: Total time spent with greater than 50% in coordination of care (as documented) at patient's floor/unit and/or counseling patient:: Greater than 70 minutes QUALITY VTE Deep Vein Thrombosis/Pulmonary Embolism Present on Admission: No
[2021-12-29] MEDS ORDERED: LABETALOL 5 MG/ML ML IV PRN (09:07)
[2021-12-29] MEDS: ENOXAPARIN 40 MG/0.4 ML SYRINGE SQ SCH (09:40)
[2021-12-29] MEDS ORDERED: LACTATED RINGERS 1,000 ML IV ONE (10:15)
[2021-12-29 10:34] LABS: ALT/SGPT 29 U/L (<40); AST/SGOT 49 U/L (<40); Albumin 3.4 gm/dL (3.2-5.2); Albumin/Globulin Ratio 0.9 (1.0-2.3); Alkaline Phosphatase 79 U/L (39-117); Bilirubin,Direct 0.5 mg/dL (<0.3); Bilirubin,Total 1.5 mg/dL (0.1-1.0); Blood Urea Nitrogen 7 mg/dL (6-20); Calcium 8.3 mg/dL (8.6-10.4); Carbon Dioxide 20 mmol/L (22-30); Chloride 94 mmol/L (96-108); Creatine Kinase 364 U/L (24-195); Globulin 3.7 gm/dL (2.2-3.7); Glomerular Filtration Rate 107; Glucose 69 mg/dL (70-105); Lactate Dehydrogenase 301 U/L (135-225); Phosphorous 3.5 mg/dL (2.5-4.5); Triglycerides 37 mg/dL (<150); Uric Acid 5.2 mg/dL (2.5-8.0)
[2021-12-29] MEDS: LISINOPRIL 20 MG TABLET PO SCH ×2 (10:56→21:14)
[2021-12-29] MEDS: hydrALAZINE 20 MG/ML VIAL IV PRN ×2 (11:10→15:04)
[2021-12-29] MEDS ORDERED: DEXTROSE 5% IN WATER 500 ML IV ONE (11:30)
[2021-12-29] MEDS ORDERED: SODIUM BICARBONATE 50 MEQ/50 ML VIAL IV ONE (11:36)
[2021-12-29] MEDS ORDERED: SODIUM BICARBONATE IV ONE (11:45)
[2021-12-29] MEDS ORDERED: DEXTROSE 5% IV ONE (11:45)
[2021-12-29] MEDS ORDERED: WATER IV ONE (11:45)
[2021-12-29] MEDS ORDERED: IODIXANOL 100 ML BOTTLE IV ONE (12:16)
[2021-12-29] MEDS: PIPERACILLIN SODIUM/TAZOBACTAM 3.375 GM in DEXTROSE 5% IN WATER 50 ML IV SCH ×3 (12:49→23:18)
--- NOTE | 2021-12-29 13:01 | EKG ---
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
--- NOTE | 2021-12-29 14:13 | Cat Scan Report ---
CLINICAL INFORMATION: Infection COMPARISON: None. TECHNIQUE: Enteric contrast was utilized. 80 cc of Isovue-370 were injected intravenously, and 50 seconds later, 0.625 mm helical slices were obtained from the lung apices through the subtrochanteric regions of the femurs. Following reconstruction, 2.5 mm sagittal, coronal and axial reformatted images were processed and reviewed at multiple windows and levels. 7 mm MIP reconstructions were obtained through the lungs to optimize nodule detection.The exam was performed using radiation dose optimization techniques including, but not limited to, automated exposure control, adjustment of the mA and/or kV according to patient size and use of iterative reconstruction technique. FINDINGS: Pulmonary parenchymal windows show few tiny calcified noncalcified granulomas and the upper lobes all less than 2.5 mm. There are no infiltrates. Pleural spaces are unremarkable-no effusions. Mediastinal windows show the heart is grossly normal in size and configuration. The pulmonary arteries are normal diameter well-opacified without evidence of embolus. Thoracic aorta is also normal diameter and well-opacified. There is no adenopathy in the mediastinal, hilar or axillary regions. Mild diffuse wall thickening of the esophagus likely represents peptic disease.. The thyroid is unremarkable. Abdominal images show mild diffuse fatty change within the liver, but no focal hepatic lesions. The gallbladder and bile ducts, both kidneys, adrenal glands, spleen, pancreas and aorta, including aortic branches, are normal in size, configuration and attenuation without focal lesion. There is no free air, free fluid or adenopathy. Pelvic images show normal urinary bladder, prostate and seminal vesicles. The stomach, small bowel, appendix region and large bowel are grossly normal. Bone windows show no osseous abnormality throughout the chest, abdomen or pelvis. A 6.3 cm paraumbilical hernia contains only mesenteric fat. An adjacent 3.1 supraumbilical hernia also contains mesenteric fat. IMPRESSION: 1. No source for infection identified. 2. Supraumbilical periumbilical hernias containing only mesenteric fat. 3. Diffuse esophageal thickening typically indicative of peptic disease. 4. Mild fatty change within the liver. Interpreted and Authenticated by: Gustavo Beltran 12/29/21
[2021-12-29] MEDS: 0.9 % SODIUM CHLORIDE 10 ML SYRINGE IV SCH ×2 (14:23→21:15)
[2021-12-29] MEDS: GABAPENTIN 300 MG CAPSULE PO SCH ×2 (15:04→21:14)
[2021-12-29 16:56] LABS: Thyroid Stimulating Hormone 1.31 uIU/mL (0.27-5.01)
[2021-12-29] MEDS ORDERED: LISINOPRIL 20 MG TABLET PO SCH (21:00)
[2021-12-29] MEDS: DOCUSATE SODIUM 100 MG CAPSULE PO SCH (21:14)
[2021-12-30] MEDS: hydrALAZINE 20 MG/ML VIAL IV PRN ×3 (01:02→16:11)
[2021-12-30] MEDS: 0.9 % SODIUM CHLORIDE 1,000 ML IV SCH ×2 (02:35→07:46)
[2021-12-30] MEDS: HYDROcodone/APAP 5/325MG TABLET PO PRN ×3 (03:04→23:58)
[2021-12-30] MEDS: PIPERACILLIN SODIUM/TAZOBACTAM 3.375 GM in DEXTROSE 5% IN WATER 50 ML IV SCH ×4 (05:55→23:46)
[2021-12-30] MEDS: 0.9 % SODIUM CHLORIDE 10 ML SYRINGE IV SCH ×3 (05:56→20:56)
[2021-12-30 07:11] LABS: ALT/SGPT 27 U/L (<40); AST/SGOT 39 U/L (<40); Albumin 3.3 gm/dL (3.2-5.2); Albumin/Globulin Ratio 0.9 (1.0-2.3); Alkaline Phosphatase 76 U/L (39-117); Bilirubin,Direct 0.7 mg/dL (<0.3); Bilirubin,Total 2.3 mg/dL (0.1-1.0); Blood Urea Nitrogen 6 mg/dL (6-20); Calcium 8.3 mg/dL (8.6-10.4); Carbon Dioxide 24 mmol/L (22-30); Chloride 94 mmol/L (96-108); Globulin 3.5 gm/dL (2.2-3.7); Glomerular Filtration Rate 107; Glucose 92 mg/dL (70-105); Lactate Dehydrogenase 297 U/L (135-225); Phosphorous 3.3 mg/dL (2.5-4.5); Triglycerides 52 mg/dL (<150); Uric Acid 3.5 mg/dL (2.5-8.0)
[2021-12-30 07:15] LABS: Hemoglobin 11.1 g/dL (13.7-17.5); Mean Cell Volume 98.2 fL (80.0-100.0); Mean Corpuscular HGB Conc 34.7 g/dL (31.0-36.0); Mean Platelet Volume 10.2 fL (8.8-12.5); Platelet Count 151 K/mcL (140-440); RBC 3.26 M/mcL (4.63-6.08); Red Cell Distribution Width 14.7 % (11.5-14.5); WBC 6.9 K/mcL (4.5-11.0)
[2021-12-30 08:04] LABS: Anisocytosis 1+ (None Seen); Lymphocytes % 23 % (15-49); Monocytes % (Manual) 7 % (1-12); Platelet Estimate NORMAL (Normal); RBC Morphology ABNORMAL (Normal); Reactive Lymphocytes 1 % (0-2); Segmented Neutrophils % 69 % (38-78)
[2021-12-30] MEDS: GABAPENTIN 300 MG CAPSULE PO SCH ×3 (08:09→20:56)
[2021-12-30] MEDS ORDERED: FUROSEMIDE 40 MG/4 ML VIAL IV ONE (08:16)
--- NOTE | 2021-12-30 08:17 | Internal Med Progress Note ---
SUBJECTIVE Subjective Patient information: Note initiated : 12/30/21 at 8:06 am Service Date, if different from initiated Date: [] Patient: Justo Nava a 56 y/o M admitted on 12/29/21 for Syncopal episode, Head lac. Chief Complaint: [] Interval history: History of present illness: Mr. Nava is a 56 year old M Who lives alone presents the ED for syncope. Patient did call 911 and had a small laceration above his left eyebrow. Blood glucose was 84. Patient did not feel right. He said he was down from yesterday. In the ED he was evaluated and found to have elevated blood pressure and heart rate. Afebrile. Oxygenation. White blood cell count and manual differential are okay. Procalcitonin okay as well as CRP. He had a hyponatremia of 128. Creatinine was okay. Is found to have an elevated CK. And his lactate was found to be elevated 5.7. pH within normal limits. Patient started on IV fluid. EKG was sinus tach. Patient states he woke up feeling normal. He went into his bedroom in the afternoon around 2 and and then fell down. He does not know if he passed out and then fell or passed out after he fell. He says he was there for few hours and then called 911. Says he did pass out couple weeks ago but did not remember the circumstances. No nausea vomiting prior but did have some here in the hospital. No history of heart or lung disease. He has edema in his legs but says that is normal. Does not use a cane or walker. No fevers or chills. No chest or abdominal pain. No diarrhea. 12/30 Patient says he physically is feeling a little better. But he says he is on stable on his feet. check b12. pt states he drinks etoh 3x's per week. Patient states he had poor sleep but that is normal for him he usually has a hard time sleeping at night has been that way for years. Sodium similar to yesterday. Magnesium a little better today. Looking at old charts looks like his heart rate always runs a bit high. He says it is normal for his heart rate to run high. Review of Systems: denies headache/fever/chills/nausea/vomiting/chest or abdominal pain/cough/dyspnea/diarrhea. Otherwise see above. Constitutional Vitals: Vital Signs Temp Pulse Resp BP Pulse Ox O2 Del Method 98.3 F 99 H 14 168/102 97 12/30/21 02:25 12/30/21 07:18 12/30/21 07:18 12/30/21 07:18 12/30/21 07:18 12/30/21 07:18 Period Temp Pulse Resp BP Sys/Garcia Pulse Ox O2 Del Method O2 Flow Rate Last 24 Hr 97.8 F-98.5 F 99-117 0-34 110-178/60-162 93-100 Room Air-Room Air Intake and Output 12/29/21 12/30/21 12/30/21 21:59 05:59 13:59 Intake Total 1370 1410 550 Output Total 725 800 Balance 645 610 550 Weight 140.886 kg Intake & Output: Intake & Output 12/29/21 12/30/21 12/30/21 21:59 05:59 13:59 Intake Total 1370 1410 550 Output Total 725 800 Balance 645 610 550 Weight 140.886 kg Intake: IV 250 1050 550 Sodium Chloride 0.9% 1,000 ml @ 1000 100 mls/hr IV .Q10H [facility] Rx#: [id number] Dextrose 5% in Water 500 ml @ 500 25 mls/hr IV .Q20H [facility] Rx#: [id number] Zosyn 3.375 gm In Dextrose 5% 100 50 50 in Water 50 ml @ 100 mls/hr IV Q6H [facility] Rx#:[id number] Sodium Bicarbonate Vial 50 Meq 100 In Dextrose 5% in Water 50 ml @ 100 mls/hr IV ONCE ONE Rx#: [id number] Oral 1120 360 Output: Void Amount 725 800 Other: Meal Dinner Percent of Meal Consumed Refused Urine Appearance Clear Clear Urine Color Dark Magali Dark Yellow Urine Odor Normal Stool Size Large Stool Color Brown Stool Consistency Dry and Hard # Bowel Movements 1 Exam: General: Alert, Awake, No acute Distress, obese Eyes/N/T: EOMI,, Head/Neck: neck supple, CV: Mildly tachycardic but regular, No murmurs, Pulm: Clear b/l, no wheezing/rhonchi/rales Abd: soft, nontender, +BS x4 Ext: no clubbing/cyanosis, b/l LE 2+ edema Neuro: Alert, no focal deficits, moves all extremities, Skin: warm/dry OBJ DATA Labs CBC & Chem 7: 12/30/21 05:42 12/30/21 05:42 Labs: Abnormal Lab Results 12/30/21 12/30/21 12/29/21 05:42 05:42 09:32 RBC 3.26 L Hgb 11.1 L Hct 32.0 L RDW 14.7 H RBC Morphology Abnormal A Anisocytosis 1+ A Macrocytosis ABG Methemoglobin VBG pCO2 VBG pO2 VBG HCO3 VBG Total CO2 VBG O2 Saturation VBG Base Excess VBG Lactic Acid Carboxyhemoglobin Total Hemoglobin Sodium 129 L Chloride 94 L Carbon Dioxide Anion Gap Glucose Calcium 8.3 L Magnesium Total Bilirubin 2.3 H Direct Bilirubin 0.7 H GGT 96 H AST Lactate Dehydrogenase 297 H Total Creatine Kinase NT-Pro-B Natriuret Pep 218.9 H Albumin/Globulin Ratio 0.9 L Hyaline Casts Urine Mucus 12/29/21 12/29/21 12/28/21 09:05 09:05 23:25 RBC Hgb Hct RDW RBC Morphology Anisocytosis Macrocytosis ABG Methemoglobin 0.3 L VBG pCO2 33.5 L VBG pO2 66.2 H VBG HCO3 20.5 L VBG Total CO2 21.5 L VBG O2 Saturation 87.3 H VBG Base Excess -3 L VBG Lactic Acid 6.0 H* Carboxyhemoglobin 3.1 H Total Hemoglobin 13.0 L Sodium 130 L Chloride 94 L Carbon Dioxide 20 L Anion Gap Glucose 69 L Calcium 8.3 L Magnesium 1.5 L Total Bilirubin 1.5 H Direct Bilirubin 0.5 H GGT 90 H AST 49 H Lactate Dehydrogenase 301 H Total Creatine Kinase 364 H NT-Pro-B Natriuret Pep Albumin/Globulin Ratio 0.9 L Hyaline Casts Urine Mucus 12/28/21 12/28/21 12/28/21 23:25 22:51 22:33 RBC Hgb Hct RDW RBC Morphology Abnormal A Anisocytosis Macrocytosis 1+ A ABG Methemoglobin VBG pCO2 VBG pO2 VBG HCO3 VBG Total CO2 VBG O2 Saturation VBG Base Excess VBG Lactic Acid 5.7 H* Carboxyhemoglobin Total Hemoglobin Sodium Chloride Carbon Dioxide Anion Gap Glucose Calcium Magnesium Total Bilirubin Direct Bilirubin GGT AST Lactate Dehydrogenase Total Creatine Kinase 435 H NT-Pro-B Natriuret Pep Albumin/Globulin Ratio Hyaline Casts Urine Mucus 12/28/21 12/28/21 12/28/21 21:39 20:50 20:50 RBC Hgb Hct RDW RBC Morphology Anisocytosis Macrocytosis ABG Methemoglobin VBG pCO2 VBG pO2 VBG HCO3 VBG Total CO2 VBG O2 Saturation VBG Base Excess VBG Lactic Acid 5.4 H* Carboxyhemoglobin Total Hemoglobin Sodium 128 L Chloride 91 L Carbon Dioxide 20 L Anion Gap 17.0 H Glucose Calcium 8.4 L Magnesium Total Bilirubin 1.2 H Direct Bilirubin GGT AST 47 H Lactate Dehydrogenase Total Creatine Kinase NT-Pro-B Natriuret Pep Albumin/Globulin Ratio Hyaline Casts 28 H Urine Mucus Few A 12/28/21 20:50 RBC 3.31 L Hgb 11.1 L Hct 32.2 L RDW 14.6 H RBC Morphology Anisocytosis Macrocytosis ABG Methemoglobin VBG pCO2 VBG pO2 VBG HCO3 VBG Total CO2 VBG O2 Saturation VBG Base Excess VBG Lactic Acid Carboxyhemoglobin Total Hemoglobin Sodium Chloride Carbon Dioxide Anion Gap Glucose Calcium Magnesium Total Bilirubin Direct Bilirubin GGT AST Lactate Dehydrogenase Total Creatine Kinase NT-Pro-B Natriuret Pep Albumin/Globulin Ratio Hyaline Casts Urine Mucus Meds: Medications Acetaminophen (Acetaminophen 325 Mg Tablet) 650 mg PO Q6HP PRN; Protocol PRN Reason: Per Pain Protocol/Fever > 101 Hydrocodone Bitart/Acetaminophen (Hydrocodone/Apap 5/325mg Tablet) 1 tab PO Q4HP PRN PRN Reason: PAIN LEVEL 3-6 Last Admin: 12/30/21 03:04 Dose: 1 tab Albuterol/Ipratropium (Ipratropium/Albuterol 3 Ml Ampul.Neb) 3 ml NEB Q4HP PRN PRN Reason: Shortness Of Breath Diagnostic Test (Pha) (Accu-Chek 1 Each Strip) 1 each FS ACHS [facility] Last Admin: 12/30/21 07:46 Dose: 1 each Docusate Sodium (Docusate Sodium 100 Mg Capsule) 100 mg PO BID [facility] Last Admin: 12/29/21 21:14 Dose: 100 mg Enoxaparin Sodium (Enoxaparin 40 Mg/0.4 Ml Syringe) 40 mg SQ DAILY [facility] Last Admin: 12/29/21 09:40 Dose: 40 mg Gabapentin (Gabapentin 300 Mg Capsule) 300 mg PO TID [facility] Last Admin: 12/29/21 21:14 Dose: 300 mg Hydralazine HCl (Hydralazine 20 Mg/Ml Vial) 0 mg IV Q2HP PRN PRN Reason: Hypertension Last Admin: 12/30/21 01:02 Dose: 20 mg Sodium Chloride (Sodium Chloride 0.9%) 1,000 mls @ 100 mls/hr IV .Q10H [facility] Last Admin: 12/30/21 07:46 Dose: Not Given Potassium Chloride 40 meq/ (Dextrose) 520 mls @ 130 mls/hr IV UD PRN PRN Reason: Potassium < 3 Magnesium Sulfate (Magnesium Sulfate) 2 gm in 50 mls @ 50 mls/hr IV UD PRN PRN Reason: Magnesium </= 1.6 Last Infusion: 12/29/21 14:24 Dose: Infused Piperacillin Sod/Tazobactam (Sod 3.375 gm/ Dextrose) 50 mls @ 100 mls/hr IV Q6H [facility]; Protocol Last Infusion: 12/30/21 06:30 Dose: Infused Labetalol HCl (Labetalol 5 Mg/Ml Ml) 0 mg IV Q2HP PRN PRN Reason: Hypertension Last Admin: 12/29/21 21:15 Dose: 10 mg Lisinopril (Lisinopril 20 Mg Tablet) 20 mg PO BID [facility] Last Admin: 12/29/21 21:14 Dose: 20 mg Ondansetron HCl (Ondansetron 4 Mg/2 Ml Vial) 4 mg IV Q4HP PRN PRN Reason: Nausea And Vomiting Last Admin: 12/29/21 11:34 Dose: 4 mg Polyethylene Glycol (Polyethylene Glycol 3350 17 Gm Packet) 17 gm PO DAILYP PRN PRN Reason: Constipation Potassium Chloride (Potassium Chloride 20 Meq Tablet) 40 meq PO UD PRN PRN Reason: Potssium is 3-3.5 Potassium Chloride (Potassium Chloride 20 Meq Tablet) 40 meq PO UD PRN PRN Reason: Potassium < 3 Senna (Sennosides 1 Tablet) 2 tab PO DAILYP PRN PRN Reason: Constipation Sodium Chloride (0.9 % Sodium Chloride 10 Ml Syringe) 10 ml IV Q8 [facility] Last Admin: 12/30/21 05:56 Dose: 10 ml ABG Interpretation ABG results: 12/28/21 23:25 ABG Methemoglobin 0.3 L VBG pH 7.41 VBG pCO2 33.5 L VBG pO2 66.2 H VBG HCO3 20.5 L VBG Total CO2 21.5 L VBG O2 Saturation 87.3 H VBG Base Excess -3 L A/P Narrative A/P Narrative: A: *?Syncope: Unknown etiology -ekg sinus *Rhabdomyolysis, mild: 2/2 downtime after fall *lactic acidosis: unknown etiology, likely component of above. resolved -no source of infection identified yet *Metabolic acidosis: 2/2 above *Hypomagnesemia: *Hyponatremia: Unknown chronicity *Peripheral neuropathy and chronic LBP: *Peripheral edema: *HTN: On lisinopril. elevated *Morbid obesity: BMI 41 *Venous insufficiency: *GERD: *Sinus Tach: commonly tachy on old charts, pt states usually elevated -echo with good EF, no WMA, P: -d/c IVF, may need lasix -f/u Na -f/u CPK -b12/cortisol check -Follow-up replace electrolytes -d/c abx if no source found next 24 hours -cont home ACEI, add coreg for BP and sinus tach -elevate legs and compression wraps -ppi -PT/OT -ppx: Lovenox Time Spent With Patient Time: Total time spent is greater than 50% in coordination of care (as documented) at patient's floor/unit and/or counseling patient: Total time spent with greater than 50% in coordination of care (as documented) at patient's floor/unit and/or counseling patient:: 35 - 50 minutes QUALITY VTE Deep Vein Thrombosis/Pulmonary Embolism Present on Admission: No
[2021-12-30] MEDS: ENOXAPARIN 40 MG/0.4 ML SYRINGE SQ SCH (08:44)
[2021-12-30] MEDS: LISINOPRIL 20 MG TABLET PO SCH ×2 (08:44→20:56)
[2021-12-30] MEDS: DOCUSATE SODIUM 100 MG CAPSULE PO SCH ×2 (08:44→20:56)
[2021-12-30] MEDS: CARVEDILOL 6.25 MG TABLET PO SCH ×2 (08:44→17:05)
[2021-12-30] MEDS: PANTOPRAZOLE 40 MG PACKET PO SCH (08:59)
[2021-12-30] MEDS ORDERED: FLU VACC QS2022-23(6MOS UP)/PF 60 MCG/0.5 ML SYRINGE IM ONE (10:00)
[2021-12-30] MEDS: diphenhydrAMINE 25 MG CAPSULE PO SCH (20:56)
[2021-12-30] MEDS: MELATONIN 3 MG TABLET PO SCH (20:56)
[2021-12-31] MEDS: PIPERACILLIN SODIUM/TAZOBACTAM 3.375 GM in DEXTROSE 5% IN WATER 50 ML IV SCH (05:38)
[2021-12-31] MEDS: 0.9 % SODIUM CHLORIDE 10 ML SYRINGE IV SCH ×3 (05:39→21:26)
[2021-12-31] MEDS: PANTOPRAZOLE 40 MG PACKET PO SCH (06:52)
[2021-12-31] MEDS: HYDROcodone/APAP 5/325MG TABLET PO PRN ×2 (06:52→21:25)
--- NOTE | 2021-12-31 07:42 | Internal Med Progress Note ---
SUBJECTIVE Subjective Patient information: Note initiated : 12/31/21 at 7:39 am Service Date, if different from initiated Date: [] Patient: Justo Nava a 56 y/o M admitted on 12/29/21 for Syncopal episode, Head lac-Cellulitis. Chief Complaint: [] Interval history: History of present illness: Mr. Nava is a 56 year old M Who lives alone presents the ED for syncope. Patient did call 911 and had a small laceration above his left eyebrow. Blood glucose was 84. Patient did not feel right. He said he was down from yesterday. In the ED he was evaluated and found to have elevated blood pressure and heart rate. Afebrile. Oxygenation. White blood cell count and manual differential are okay. Procalcitonin okay as well as CRP. He had a hyponatremia of 128. Creatinine was okay. Is found to have an elevated CK. And his lactate was found to be elevated 5.7. pH within normal limits. Patient started on IV fluid. EKG was sinus tach. Patient states he woke up feeling normal. He went into his bedroom in the afternoon around 2 and and then fell down. He does not know if he passed out and then fell or passed out after he fell. He says he was there for few hours and then called 911. Says he did pass out couple weeks ago but did not remember the circumstances. No nausea vomiting prior but did have some here in the hospital. No history of heart or lung disease. He has edema in his legs but says that is normal. Does not use a cane or walker. No fevers or chills. No chest or abdominal pain. No diarrhea. 12/30 Patient says he physically is feeling a little better. But he says he is on stable on his feet. check b12. pt states he drinks etoh 3x's per week. Patient states he had poor sleep but that is normal for him he usually has a hard time sleeping at night has been that way for years. Sodium similar to yesterday. Magnesium a little better today. Looking at old charts looks like his heart rate always runs a bit high. He says it is normal for his heart rate to run high. 12/31 Patient feeling little bit better today. Had more of an appetite today. Feels like his cognitive function has been poor since he fell and hit his head but he feels like today is little bit better. Patient does feel little bloated today after larger than usual breakfast. Patient does complain of severe left hip pain when he moves. Stepmother came out and talk to me regarding his alcohol intake stating that he is frequently drunk and goes to $400-$500 of alcohol per month. He is commonly not honest about how much he drinks. This new history fits his clinical picture in its entirety. Review of Systems: denies headache/fever/chills/nausea/vomiting/chest or abdominal pain/cough/dyspnea/diarrhea. Otherwise see above. Constitutional Vitals: Vital Signs Temp Pulse Resp BP Pulse Ox O2 Del Method O2 Flow Rate 98.2 F 109 H 14 164/94 95 0 12/31/21 04:01 12/30/21 08:41 12/31/21 04:01 12/31/21 04:01 12/30/21 20:00 12/31/21 04:01 12/30/21 12:02 Period Temp Pulse Resp BP Sys/Garcia Pulse Ox O2 Del Method O2 Flow Rate Last 24 Hr 97.2 F-98.7 F 109-109 12- 118-190/78-128 95-100 Room Air- Room Air 0-0 Intake and Output 12/30/21 12/31/21 12/31/21 21:59 05:59 13:59 Intake Total 510 50 50 Output Total 950 650 Balance -440 -600 50 Weight 141.158 kg Intake & Output: Intake & Output 12/30/21 12/31/21 12/31/21 21:59 05:59 13:59 Intake Total 510 50 50 Output Total 950 650 Balance -440 -600 50 Weight 141.158 kg Intake: Nourishment/Supplement quantity 240 (ml) IV 50 50 50 Zosyn 3.375 gm In Dextrose 5% 50 50 50 in Water 50 ml @ 100 mls/hr IV Q6H [facility] Rx#:[id number] Oral 220 Output: Void Amount 950 650 Other: Urine Appearance Clear Urine Color Bright Yellow # Voids 1 Exam: General: Alert, Awake, No acute Distress, obese Eyes/N/T: EOMI Head/Neck: neck supple, CV: Mildly tachycardic but regular, No murmurs, Pulm: Clear b/l, no wheezing/rhonchi/rales Abd: soft, nontender, +BS x4 Ext: no clubbing/cyanosis, b/l LE 1-2+ edema Neuro: Alert, no focal deficits, moves all extremities, Skin: warm/dry OBJ DATA Labs CBC & Chem 7: 12/30/21 05:42 12/31/21 05:33 Labs: Abnormal Lab Results 12/30/21 12/30/21 12/30/21 05:42 05:42 05:30 RBC 3.26 L Hgb 11.1 L Hct 32.0 L RDW 14.7 H RBC Morphology Abnormal A Anisocytosis 1+ A Macrocytosis ABG Methemoglobin VBG pCO2 VBG pO2 VBG HCO3 VBG Total CO2 VBG O2 Saturation VBG Base Excess VBG Lactic Acid Carboxyhemoglobin Total Hemoglobin Sodium 129 L Chloride 94 L Carbon Dioxide Anion Gap Glucose Calcium 8.3 L Magnesium Total Bilirubin 2.3 H Direct Bilirubin 0.7 H GGT 96 H AST Lactate Dehydrogenase 297 H Total Creatine Kinase 302 H NT-Pro-B Natriuret Pep Albumin/Globulin Ratio 0.9 L Hyaline Casts Urine Mucus 12/29/21 12/29/21 12/29/21 09:32 09:05 09:05 RBC Hgb Hct RDW RBC Morphology Anisocytosis Macrocytosis ABG Methemoglobin VBG pCO2 VBG pO2 VBG HCO3 VBG Total CO2 VBG O2 Saturation VBG Base Excess VBG Lactic Acid 6.0 H* Carboxyhemoglobin Total Hemoglobin Sodium 130 L Chloride 94 L Carbon Dioxide 20 L Anion Gap Glucose 69 L Calcium 8.3 L Magnesium 1.5 L Total Bilirubin 1.5 H Direct Bilirubin 0.5 H GGT 90 H AST 49 H Lactate Dehydrogenase 301 H Total Creatine Kinase 364 H NT-Pro-B Natriuret Pep 218.9 H Albumin/Globulin Ratio 0.9 L Hyaline Casts Urine Mucus 12/28/21 12/28/21 12/28/21 23:25 23:25 22:51 RBC Hgb Hct RDW RBC Morphology Anisocytosis Macrocytosis ABG Methemoglobin 0.3 L VBG pCO2 33.5 L VBG pO2 66.2 H VBG HCO3 20.5 L VBG Total CO2 21.5 L VBG O2 Saturation 87.3 H VBG Base Excess -3 L VBG Lactic Acid 5.7 H* Carboxyhemoglobin 3.1 H Total Hemoglobin 13.0 L Sodium Chloride Carbon Dioxide Anion Gap Glucose Calcium Magnesium Total Bilirubin Direct Bilirubin GGT AST Lactate Dehydrogenase Total Creatine Kinase 435 H NT-Pro-B Natriuret Pep Albumin/Globulin Ratio Hyaline Casts Urine Mucus 12/28/21 12/28/21 12/28/21 22:33 21:39 20:50 RBC Hgb Hct RDW RBC Morphology Abnormal A Anisocytosis Macrocytosis 1+ A ABG Methemoglobin VBG pCO2 VBG pO2 VBG HCO3 VBG Total CO2 VBG O2 Saturation VBG Base Excess VBG Lactic Acid 5.4 H* Carboxyhemoglobin Total Hemoglobin Sodium Chloride Carbon Dioxide Anion Gap Glucose Calcium Magnesium Total Bilirubin Direct Bilirubin GGT AST Lactate Dehydrogenase Total Creatine Kinase NT-Pro-B Natriuret Pep Albumin/Globulin Ratio Hyaline Casts 28 H Urine Mucus Few A 12/28/21 12/28/21 20:50 20:50 RBC 3.31 L Hgb 11.1 L Hct 32.2 L RDW 14.6 H RBC Morphology Anisocytosis Macrocytosis ABG Methemoglobin VBG pCO2 VBG pO2 VBG HCO3 VBG Total CO2 VBG O2 Saturation VBG Base Excess VBG Lactic Acid Carboxyhemoglobin Total Hemoglobin Sodium 128 L Chloride 91 L Carbon Dioxide 20 L Anion Gap 17.0 H Glucose Calcium 8.4 L Magnesium Total Bilirubin 1.2 H Direct Bilirubin GGT AST 47 H Lactate Dehydrogenase Total Creatine Kinase NT-Pro-B Natriuret Pep Albumin/Globulin Ratio Hyaline Casts Urine Mucus Meds: Medications Acetaminophen (Acetaminophen 325 Mg Tablet) 650 mg PO Q6HP PRN; Protocol PRN Reason: Per Pain Protocol/Fever > 101 Hydrocodone Bitart/Acetaminophen (Hydrocodone/Apap 5/325mg Tablet) 1 tab PO Q4HP PRN PRN Reason: PAIN LEVEL 3-6 Last Admin: 12/31/21 06:52 Dose: 1 tab Albuterol/Ipratropium (Ipratropium/Albuterol 3 Ml Ampul.Neb) 3 ml NEB Q4HP PRN PRN Reason: Shortness Of Breath Carvedilol (Carvedilol 6.25 Mg Tablet) 6.25 mg PO BIDCC [facility] Last Admin: 12/30/21 17:05 Dose: 6.25 mg Diagnostic Test (Pha) (Accu-Chek 1 Each Strip) 1 each FS ACHS [facility] Last Admin: 12/31/21 06:57 Dose: 1 each Diphenhydramine HCl (Diphenhydramine 25 Mg Capsule) 25 mg PO HS [facility] Last Admin: 12/30/21 20:56 Dose: 25 mg Docusate Sodium (Docusate Sodium 100 Mg Capsule) 100 mg PO BID [facility] Last Admin: 12/30/21 20:56 Dose: 100 mg Enoxaparin Sodium (Enoxaparin 40 Mg/0.4 Ml Syringe) 40 mg SQ DAILY [facility] Last Admin: 12/30/21 08:44 Dose: 40 mg Gabapentin (Gabapentin 300 Mg Capsule) 300 mg PO TID [facility] Last Admin: 12/30/21 20:56 Dose: 300 mg Hydralazine HCl (Hydralazine 20 Mg/Ml Vial) 0 mg IV Q2HP PRN PRN Reason: Hypertension Last Admin: 12/30/21 16:11 Dose: 20 mg Potassium Chloride 40 meq/ (Dextrose) 520 mls @ 130 mls/hr IV UD PRN PRN Reason: Potassium < 3 Magnesium Sulfate (Magnesium Sulfate) 2 gm in 50 mls @ 50 mls/hr IV UD PRN PRN Reason: Magnesium </= 1.6 Last Infusion: 12/29/21 14:24 Dose: Infused Piperacillin Sod/Tazobactam (Sod 3.375 gm/ Dextrose) 50 mls @ 100 mls/hr IV Q6H [facility]; Protocol Last Infusion: 12/31/21 06:40 Dose: Infused Labetalol HCl (Labetalol 5 Mg/Ml Ml) 0 mg IV Q2HP PRN PRN Reason: Hypertension Last Admin: 12/29/21 21:15 Dose: 10 mg Lisinopril (Lisinopril 20 Mg Tablet) 20 mg PO BID [facility] Last Admin: 12/30/21 20:56 Dose: 20 mg Melatonin (Melatonin 3 Mg Tablet) 3 mg PO QHS [facility] Last Admin: 12/30/21 20:56 Dose: 3 mg Ondansetron HCl (Ondansetron 4 Mg/2 Ml Vial) 4 mg IV Q4HP PRN PRN Reason: Nausea And Vomiting Last Admin: 12/29/21 11:34 Dose: 4 mg Pantoprazole Sodium (Pantoprazole 40 Mg Packet) 40 mg PO QAMAC [facility] Last Admin: 12/31/21 06:52 Dose: 40 mg Polyethylene Glycol (Polyethylene Glycol 3350 17 Gm Packet) 17 gm PO DAILYP PRN PRN Reason: Constipation Potassium Chloride (Potassium Chloride 20 Meq Tablet) 40 meq PO UD PRN PRN Reason: Potssium is 3-3.5 Potassium Chloride (Potassium Chloride 20 Meq Tablet) 40 meq PO UD PRN PRN Reason: Potassium < 3 Senna (Sennosides 1 Tablet) 2 tab PO DAILYP PRN PRN Reason: Constipation Sodium Chloride (0.9 % Sodium Chloride 10 Ml Syringe) 10 ml IV Q8 DAJA Last Admin: 12/31/21 05:39 Dose: 10 ml ABG Interpretation ABG results: 12/28/21 23:25 ABG Methemoglobin 0.3 L VBG pH 7.41 VBG pCO2 33.5 L VBG pO2 66.2 H VBG HCO3 20.5 L VBG Total CO2 21.5 L VBG O2 Saturation 87.3 H VBG Base Excess -3 L A/P Narrative A/P Narrative: A: *?Syncope w/fall and concussion: likely etoh related -ekg sinus *Rhabdomyolysis, mild: 2/2 downtime after fall *lactic acidosis: unknown etiology, likely component of above. resolved -no source of infection identified yet *Metabolic acidosis: 2/2 above, improved *Hypomagnesemia: *Hyponatremia: Unknown chronicity, stable. likely beer potomania *Peripheral neuropathy and chronic LBP: *B12 Deficiency: 2/2 likey etoh abuse *Peripheral edema: *HTN: On lisinopril. elevated *Morbid obesity: BMI 41 *Fatty Liver: *Venous insufficiency: *GERD: *Sinus Tach: commonly tachy on old charts, pt states usually elevated -echo with good EF, no WMA, *Alcohol abuse and Withdrawal: new history that fits clinical picture in its entirety P: -lasix today -f/u Na -CIWA, thiamine -b12 supp, mma pending -Follow-up replace electrolytes -d/c abx -cont home ACEI, added coreg -elevate legs and compression wraps -ppi -PT/OT -CM for placement likely SNF -ppx: Lovenox Time Spent With Patient Time: Total time spent is greater than 50% in coordination of care (as documented) at patient's floor/unit and/or counseling patient: Total time spent with greater than 50% in coordination of care (as documented) at patient's floor/unit and/or counseling patient:: 35 - 50 minutes QUALITY VTE Deep Vein Thrombosis/Pulmonary Embolism Present on Admission: No
[2021-12-31 08:01] LABS: ALT/SGPT 20 U/L (<40); AST/SGOT 26 U/L (<40); Albumin 3.1 gm/dL (3.2-5.2); Albumin/Globulin Ratio 1.1 (1.0-2.3); Alkaline Phosphatase 63 U/L (39-117); Bilirubin,Direct 0.7 mg/dL (<0.3); Bilirubin,Total 1.7 mg/dL (0.1-1.0); Blood Urea Nitrogen 8 mg/dL (6-20); Calcium 8.2 mg/dL (8.6-10.4); Carbon Dioxide 27 mmol/L (22-30); Chloride 94 mmol/L (96-108); Globulin 2.9 gm/dL (2.2-3.7); Glomerular Filtration Rate 101; Glucose 81 mg/dL (70-105); Lactate Dehydrogenase 220 U/L (135-225); Triglycerides 52 mg/dL (<150); Uric Acid 3.2 mg/dL (2.5-8.0)
[2021-12-31] MEDS: DOCUSATE SODIUM 100 MG CAPSULE PO SCH ×2 (08:36→21:25)
[2021-12-31] MEDS: ENOXAPARIN 40 MG/0.4 ML SYRINGE SQ SCH (08:36)
[2021-12-31] MEDS: CYANOCOBALAMIN (VITAMIN B-12) 500 MCG TABLET PO SCH (08:36)
[2021-12-31] MEDS: LISINOPRIL 20 MG TABLET PO SCH ×2 (08:36→21:26)
[2021-12-31] MEDS: GABAPENTIN 300 MG CAPSULE PO SCH ×3 (08:36→21:25)
[2021-12-31] MEDS: FOLIC ACID 1 MG TABLET PO SCH (08:36)
[2021-12-31] MEDS: CARVEDILOL 6.25 MG TABLET PO SCH ×2 (08:36→17:37)
[2021-12-31] MEDS ORDERED: FUROSEMIDE 40 MG/4 ML VIAL IV ONE (09:03)
[2021-12-31] MEDS ORDERED: chlordiazePOXIDE 25 MG CAPSULE PO PRN (09:11)
[2021-12-31] MEDS ORDERED: cloNIDine HCL 0.1 MG TABLET PO PRN (09:11)
[2021-12-31] MEDS ORDERED: LORazepam 2 MG/ML VIAL IV PRN (09:11)
[2021-12-31] MEDS: THIAMINE 100 MG in 0.9 % SODIUM CHLORIDE 50 ML IV SCH (10:22)
[2021-12-31] MEDS: MULTIVIT,THER IRON,CA,FA & MIN 1 TABLET PO SCH (10:22)
[2021-12-31] MEDS: SODIUM CHLORIDE 1 GM TABLET PO SCH ×3 (10:23→21:25)
[2021-12-31] MEDS ORDERED: THIAMINE 100 MG/ML VIAL ONE (10:31)
[2021-12-31] MEDS: SIMETHICONE 80 MG TAB.CHEW CHEWED SCH ×4 (10:44→21:25)
--- NOTE | 2021-12-31 12:10 | Discharge Summary ---
Discharge Provider Provider IMPORTANT FOLLOW-UP INFORMATION FOR PCP: P: -cont home ACEI, added coreg -Vitamin B12 supplementation -f/u with Dr. Kiran -Monitor blood pressure twice daily, keep log and bring to PCP. Patient information: Note initiated : 12/31/21 at 12:07 pm Service Date, if different from initiated Date: [] Patient: Justo Nava 56 y/o M admitted on 12/29/21 for Syncopal episode, Head lac-Cellulitis. Chief Complaint: [] Date of admission: 12/29/21 01:42 Discharge date: 01/01/22 Primary care physician: Curtis Cruz Consults: 12/28/21 Consult to Physician [CONS] Stat Comment: Consulting Provider: Rashaun Chcako Reason For Exam: Physician to Consult COURSE Hospital Course Hospital course: Interval history: History of present illness: Mr. Nava is a 56 year old M Who lives alone presents the ED for syncope. Patient did call 911 and had a small laceration above his left eyebrow. Blood glucose was 84. Patient did not feel right. He said he was down from yesterday. In the ED he was evaluated and found to have elevated blood pressure and heart rate. Afebrile. Oxygenation. White blood cell count and manual differential are okay. Procalcitonin okay as well as CRP. He had a hyponatremia of 128. Creatinine was okay. Is found to have an elevated CK. And his lactate was found to be elevated 5.7. pH within normal limits. Patient started on IV fluid. EKG was sinus tach. Patient states he woke up feeling normal. He went into his bedroom in the afternoon around 2 and and then fell down. He does not know if he passed out and then fell or passed out after he fell. He says he was there for few hours and then called 911. Says he did pass out couple weeks ago but did not remember the circumstances. No nausea vomiting prior but did have some here in the hospital. No history of heart or lung disease. He has edema in his legs but says that is normal. Does not use a cane or walker. No fevers or chills. No chest or abdominal pain. No diarrhea. 12/30 Patient says he physically is feeling a little better. But he says he is on stable on his feet. check b12. pt states he drinks etoh 3x's per week. Patient states he had poor sleep but that is normal for him he usually has a hard time sleeping at night has been that way for years. Sodium similar to yesterday. Magnesium a little better today. Looking at old charts looks like his heart rate always runs a bit high. He says it is normal for his heart rate to run high. 12/31 Patient feeling little bit better today. Had more of an appetite today. Feels like his cognitive function has been poor since he fell and hit his head but he feels like today is little bit better. Patient does feel little bloated today after larger than usual breakfast. Patient does complain of severe left hip pain when he moves. Stepmother came out and talk to me regarding his alcohol intake stating that he is frequently drinks and spends quite a bit on alcohol per month. He is not entirely honest about his drinking habits. This new history fits his clinical picture in its entirety. 01/01 No overnight events or new complaints. Patient feeling better and stable for discharge. A: *Alcohol abuse and Withdrawal: new history that fits clinical picture in its entirety *?Syncope w/fall and concussion: likely etoh related -ekg sinus *Rhabdomyolysis, mild: 2/2 downtime after fall *Lactic acidosis: 2/2 above, resolved -no source of infection identified *Metabolic acidosis: 2/2 above, improved *Hypomagnesemia: *Hyponatremia: Unknown chronicity, stable. likely beer potomania *Peripheral neuropathy and chronic LBP: *B12 Deficiency: 2/2 likey etoh abuse *Peripheral edema: *HTN: On lisinopril. elevated *Morbid obesity: BMI 41 *Fatty Liver: *Venous insufficiency: *GERD: *Sinus Tach: commonly tachy on old charts, pt states usually elevated vs acute from etoh w/d -echo with good EF, no WMA, P: -cont home ACEI, added coreg -Patient to measure blood pressure twice daily, keep log and bring to PCP. -Vitamin B12 supplementation -f/u with Dr. Kiran Discharge diagnosis: Alcohol abuse and withdrawal possible syncope Secondary discharge diagnosis: Elevated CPK lactic acidosis metabolic acidosis hypomagnesemia hyponatremia peripheral neuropathy chronic low back pain vitamin B12 deficiency peripheral edema hypertension morbid obesity fatty liver venous insufficiency GERD sinus tach Time Spent with Patient Time attestation: Total time spent providing and/or coordinating discharge services: Time spent: Greater than 30 minutes EXAM Constitutional Vitals: Temp Pulse Resp BP Pulse Ox O2 Del Method O2 Flow Rate 97.8 F 95 H 17 120/89 98 0 12/31/21 12:01 12/31/21 12:01 12/31/21 12:01 12/31/21 12:01 12/31/21 12:01 12/31/21 09:11 12/30/21 12:02 Discharge Data Data Completed and Pending Labs on day of discharge: Labs from last 24 hours 12/31/21 12/31/21 12/30/21 08:19 05:33 11:25 Sodium 129 L Potassium 3.6 Chloride 94 L Carbon Dioxide 27 Anion Gap 8.0 BUN 8 Creatinine 0.8 GFR Calculation 101 Glucose 81 Uric Acid 3.2 Calcium 8.2 L Phosphorus 3.0 Magnesium 1.7 Total Bilirubin 1.7 H Direct Bilirubin 0.7 H GGT 89 H AST 26 ALT 20 Alkaline Phosphatase 63 Lactate Dehydrogenase 220 Total Protein 6.0 Albumin 3.1 L Globulin 2.9 Albumin/Globulin Ratio 1.1 Triglycerides 52 Vitamin B12 Methylmalonic Acid Pending Folate 5.0 12/30/21 11:07 Sodium Potassium Chloride Carbon Dioxide Anion Gap BUN Creatinine GFR Calculation Glucose Uric Acid Calcium Phosphorus Magnesium Total Bilirubin Direct Bilirubin GGT AST ALT Alkaline Phosphatase Lactate Dehydrogenase Total Protein Albumin Globulin Albumin/Globulin Ratio Triglycerides Vitamin B12 251.7 Methylmalonic Acid Folate Preliminary micro results at discharge 12/28/21 20:50 Blood Culture - Preliminary Blood 12/28/21 20:35 Blood Culture - Preliminary Blood Discharge Plan Patient/Caregiver Discharge Instructions Activity: increase activity as tolerated Diet: Regular Diet Activity Restrictions/Additional Instructions: Monitor blood pressure twice daily, keep log and bring to PCP. Prescriptions: New cyanocobalamin (vitamin B-12) 500 mcg Tablet 1,000 mcg PO DAILY Qty: 60 0RF carvedilol 12.5 mg tablet 12.5 mg PO BID Qty: 60 0RF Rx Instructions: must administer with a meal/food Continued gabapentin 100 mg Tablet 300 mg PO TID lisinopril 20 mg tablet 20 mg PO BID Qty: 60 1RF Rx Instructions: Take one tablet twice a day. Follow Up Plan Follow up with: Briana Kiran DO [Physician] - (alcohol cessation ) Curtis Cruz [Primary Care Provider] - Patient Disposition: Home Health Service Prognosis: Undetermined Overall status at discharge: patient is progressing back to baseline Discharge Orders: Discharge Order (Routine); Ordered 01/01/22 Ordered By: Rashaun Chacko [facility] VTE Deep Vein Thrombosis/Pulmonary Embolism Present on Admission: No
[2021-12-31] MEDS ORDERED: 0.9 % SODIUM CHLORIDE 10 ML SYRINGE IV SCH (14:00)
[2021-12-31] MEDS: diphenhydrAMINE 25 MG CAPSULE PO SCH (21:25)
[2021-12-31] MEDS: MELATONIN 3 MG TABLET PO SCH (21:26)
[2022-01-01] MEDS: 0.9 % SODIUM CHLORIDE 10 ML SYRINGE IV SCH (05:27)
[2022-01-01 07:23] LABS: ALT/SGPT 29 U/L (<40); AST/SGOT 48 U/L (<40); Albumin 3.2 gm/dL (3.2-5.2); Alkaline Phosphatase 65 U/L (39-117); Bilirubin,Direct 0.4 mg/dL (<0.3); Bilirubin,Total 1.2 mg/dL (0.1-1.0); Blood Urea Nitrogen 11 mg/dL (6-20); Calcium 8.2 mg/dL (8.6-10.4); Carbon Dioxide 27 mmol/L (22-30); Chloride 94 mmol/L (96-108); Globulin 3.1 gm/dL (2.2-3.7); Glomerular Filtration Rate 101; Glucose 73 mg/dL (70-105); Lactate Dehydrogenase 260 U/L (135-225); Phosphorous 3.4 mg/dL (2.5-4.5); Triglycerides 66 mg/dL (<150); Uric Acid 3.6 mg/dL (2.5-8.0)
[2022-01-01] MEDS: LISINOPRIL 20 MG TABLET PO SCH (07:40)
[2022-01-01] MEDS: CARVEDILOL 6.25 MG TABLET PO SCH (07:40)
[2022-01-01] MEDS: GABAPENTIN 300 MG CAPSULE PO SCH (07:41)
[2022-01-01] MEDS: MULTIVIT,THER IRON,CA,FA & MIN 1 TABLET PO SCH (07:41)
[2022-01-01] MEDS: CYANOCOBALAMIN (VITAMIN B-12) 500 MCG TABLET PO SCH (07:41)
[2022-01-01] MEDS: FOLIC ACID 1 MG TABLET PO SCH (07:41)
[2022-01-01] MEDS: ENOXAPARIN 40 MG/0.4 ML SYRINGE SQ SCH (07:42)
[2022-01-01] MEDS: PANTOPRAZOLE 40 MG PACKET PO SCH (07:43)
[2022-01-01] MEDS: DOCUSATE SODIUM 100 MG CAPSULE PO SCH (07:43)
[2022-01-01] MEDS ORDERED: THIAMINE 100 MG TABLET PO ONE (10:35)
[2022-01-01] MEDS: HYDROcodone/APAP 5/325MG TABLET PO PRN (10:49)
[2022-01-01] MEDS: THIAMINE 100 MG in 0.9 % SODIUM CHLORIDE 50 ML IV SCH (11:51)
== END 2022-01-01 11:20 | disposition home health service (06) | DRG 897 ==
LOC: ED 19:14 → ICU 12-29 01:42
PROVIDERS: ADMIT Internal Medicine; ATTEND Internal Medicine